=== PATIENT | female | born 1975 | race Caucasian/White ===

== ENCOUNTER → 2023-12-12 | Outpatient (CLI) | payer BC ==
[2023-12-12 10:29] VITALS: BP 97/69; PULSE 70; RESP 17; TEMP 98.3
--- NOTE | 2023-12-12 17:21 | P.HPOB ---
History of Present Illness H&P Date: 12/12/23 Chief Complaint: The patient is here for her routine gynecologic exam. This is a 48-year-old -0-1-2 with an LMP of 12/04/2023. The patient states her menstrual periods are still regular every month. During the past 8 months she has been experiencing some pelvic pressure greatest on the left side. She rates the discomfort at 0.5/10. Occasionally when moving certain ways she can feel a slight pinching sensation. Her PCP ordered a pelvic ultrasound because of the symptoms on 06/01/2023 which showed a 2.9 cm left ovarian cyst, a 1.7 cm right ovarian cyst consistent with a corpus luteum cyst, and there was some lower uterine segment vascularity measuring 0.8 cm which was felt to be consistent with her previous C-sections. There was also possible fibroids with the largest measuring 1.7 cm. Patient is otherwise without gynecologic complaints. Review of Systems She has gained about 20 pounds over the past 4 years. Denies respiratory, cardiac, or GI problems. Past Medical History Past Medical History: No Reported History Additional Past Medical History / Comment(s): History of left knee problems. 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 History of Any Multi-Drug Resistant Organisms: None Reported Past Surgical History: Section Additional Past Surgical History / Comment(s): section 2. 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 She continues to work out of her home and lives in [place]. - Past Family History Son(s) Family Medical History: Diabetes Mellitus Additional Family Medical History / Comment(s): Suspected type 1 diabetes. Paternal gramdmaother Family Medical History: CVA/TIA Medications and Allergies Home Medications Medication Instructions Recorded Confirmed Type Cholecalciferol [Vitamin D3 (25 1 cap PO HS 03/24/20 12/12/23 History Mcg = 1000 Iu)] L.acidoph,Paracasei, B.lactis 1 each PO HS 03/24/20 12/12/23 History [Probiotic] Multivitamin [Multivitamins Adult 1 each PO HS 03/24/20 12/12/23 History Gummies] Ubidecarenone [Co Q-10] 100 mg PO HS 03/24/20 12/12/23 History Iron 18 mg PO DAILY 12/12/23 12/12/23 History Allergies Allergy/AdvReac Type Severity Reaction Status Date / Time No Known Allergies Allergy Unverified 12/12/23 10:02 Exam Vital Signs Temp Pulse Resp BP Pulse Ox 12/12/23 10:04 98.3 F 70 17 97/69 98 Intake and Output 12/12/23 12/12/23 12/12/23 06:59 14:59 22:59 Other: Weight 96.615 kg Height 5 feet 7 inches, weight 213 pounds, BMI 33.4. This is a well-developed well-nourished white female who is alert and oriented times 3 in no acute distress. HEENT: Within normal limits. NECK: Supple without mass or thyromegaly. CHEST AND LUNGS: Clear to auscultation. HEART: Regular rate and rhythm. BREASTS: Are without mass or discharge. AXILLARY EXAM: Negative for adenopathy. BACK: Negative for CVA tenderness. ABDOMEN: Soft, nontender, without palpable masses. PELVIC EXAM: Normal external genitalia. Cervix and vagina appear normal. There is no cervical motion tenderness. There is no unusual discharge. There is no evidence of prolapse. The uterus is midposition, nongravid size and nontender. There are no palpable adnexal masses or tenderness. RECTAL EXAM: Rectovaginal exam is negative for mass or tenderness negative for mass or tenderness and is negative for occult blood. EXTREMITIES: Nontender. IMPRESSION: 1. 48-year-old premenopausal female with mild left pelvic pressure and mild left pelvic pains with no significant physical findings on exam today. Differential diagnosis will include symptoms from a left ovarian cyst, uterine fibroids as well as possible non- gynecologic pressure. 2. History of 06/01/2023 pelvic ultrasound which showed a 2.9 cm left ovarian cyst and small uterine fibroids with the largest measuring 1.7 cm. PLAN: 1. Pap smear cotest was performed. 2. Self breast awareness was discussed with the patient. We have also discussed symptoms associated with inflammatory breast cancer. 3. Screening mammogram due and the order slip was given to the patient for this. 4. Pelvic ultrasound was recommended as a follow-up from the pelvic ultrasound done 6 months ago. The order slip was given to the patient for this. If benign findings consider conservative management if her symptoms are still minimal. Consider referral for surgical intervention if worsening symptoms or if significant abnormal findings with the ultrasound. 5. Colorectal cancer screening was discussed with the patient and she will further discuss this with her PCP. 6. Weight control was discussed with the patient. I have stressed the importance of good nutrition, regular meals, adequate fiber, and regular exercise. 7. She was advised to return in one year for her annual well woman exam and as needed.
== END ==
LOC: WWCWWP 09:12
PROVIDERS: ATTEND Obstetrics & Gynecology
DX: R10.2 Pelvic and perineal pain (principal); D25.9 Leiomyoma of uterus, unspecified; N83.202 Unspecified ovarian cyst, left side; Z78.0 Asymptomatic menopausal state

== ENCOUNTER → 2024-01-01 | Outpatient (CLI) | payer BC ==
--- NOTE | 2024-01-01 12:46 | US ---
EXAMINATION TYPE: US pelvis complete transvag DATE OF EXAM: 01/01/2024 COMPARISON: 05/24/2023 CLINICAL INDICATION: Female, 48 years old with history of R10.2 PELV PAIN N83.0 OV CYST D25.9; histor y of left ovarian cysts and fibroids TECHNIQUE: Transvaginal (TV) and Transabdominal (TA) . Transabdominal sonographic images of the pel vis were acquired. Transvaginal sonographic images were medically necessary to better assess the fol lowing anatomy: Endometrium Date of LMP: 12/29/2023, EXAM MEASUREMENTS: Uterus: 12.0 x 6.2 x 4.8 cm Endometrial Stripe: 0.7 cm Right Ovary: 3.1 x 1.5 x 1.4 cm Left Ovary: 4.1 x 3.1 x 2.7 cm 1. Uterus: Anteverted Heterogenous. Enlarged in size. Multiple hypoechoic lesions seen throughou t uterus. Largest on right = 1.6 x 1.5 x 1.5 cm. Largest on left = 1.7 x 1.6 x 1.2 cm. 2. Endometrium: Echogenic lesion seen at level of SHERIN/ area with possible vascular stalk = 0.7 x 0.7 x 0.6 cm. 3. Right Ovary: wnl 4. Left Ovary: Simple appearing cystic lesion - 3.1 x 2.7 x 2.4 cm 5. Bilateral Adnexa: wnl 6. Posterior cul-de-sac: No free fluid Cervix- nabothian cysts IMPRESSION: 1. Endometrial polyp suggested with vascular stalk. Direct visualization recommended. 2. Enlarged fibroid uterus. 3. Endometrium within normal limits for thickness were visualized. 4. Left ovarian cyst measuring up to 3.1 cm.
--- NOTE | 2024-01-03 09:31 | MM ---
Reason for Exam: Screening (asymptomatic). Last mammogram was performed 1 year(s) and 2 month(s) ago. Patient History: Menarche at age 11. First Full-Term at age 33. Late child-bearing (after 30). Risk Values: Adia 5 year model risk: 1.4%. NCI Lifetime model risk: 13.6%. Prior Study Comparison: 10/10/2022 Bilateral MG 3D screening mammo w/cad, [facility]. Tissue Density: The breasts are heterogeneously dense, which may obscure small masses. Findings: Analyzed By CAD. There is no suspicious group of microcalcifications or new suspicious mass in either breast. There is an asymmetric density in the posterior upper outer margin right breast and upper outer left breast. Recommend spot compression view. Overall Assessment: Incomplete: need additional imaging evaluation, BI-RAD 0 Management: Diagnostic Mammogram of both breasts. . Patient should continue monthly self-breast exams. A clinical breast exam by your physician is recommended on an annual basis. This exam should not preclude additional follow-up of suspicious palpable abnormalities. Note on Aida scores and lifetime risk: 1. A Aida score greater than 3% is considered moderate risk. If this is the case, consider specialist referral to assess eligibility for a risk reducing agent. 2. If overall lifetime risk for the development of breast cancer is 20% or higher, the patient may qualify for future screening with alternating mammogram and breast MRI. Electronically signed and approved by: Neo Rodriguez M.D. Radiologis
--- NOTE | 2024-01-03 14:24 | P.PN ---
Progress Note - Text Progress Note Date: 01/03/24 OUTPATIENT FOLLOW-UP NOTE TEST(S)/RESULTS: Test results from 01/01/2024 include mammogram which does require bilateral breast workup for asymmetric dense areas. Pelvic ultrasound done on that date shows a left ovarian simple cyst measuring 3.1 cm. There are small uterine fibroids with the largest measuring 1.7 cm. The right ovarian cyst which was previously seen by ultrasound on 06/01/2023 is no longer seen. There is a small area within the endometrium which appears like it may be a endometrial polyp measuring about 7 mm. METHOD OF NOTIFICATION: The patient was notified about these findings by phone on 01/03/2024. PATIENT COMMENTS: The patient states she was contacted by the radiology d geoff and has scheduled a bilateral breast workup on 01/05/2024. States the minimal pains which she was experiencing on the left side have resolved since she was seen in the office by me. She also denies any intermenstrual bleeding or problems with her menstrual periods. DIAGNOSIS: Screening mammogram that does require bilateral breast workup. Pelvic ultrasound showing small uterine fibroids, a simple benign appearing left ovarian cyst measuring approximately 3.1 cm which is similar to the 06/01/2023 ultrasound. Possible small endometrial polyp which does not seem to be causing any menstrual problems. DISCUSSION: I have recommended that we follow the ultrasound findings conservatively at this time unless she is experiencing increasing pelvic discomfort or any menstrual or intermenstrual bleeding problems. Plan on repeating the pelvic ultrasound in 1 year. PLAN: Bilateral breast workup on 01/05/2024. Repeat pelvic ultrasound in 1 year or as needed. She was advised to return in one year for her annual well woman exam.
== END | disposition home or self-care (01) ==
LOC: RADUSWWP 11:07
PROVIDERS: ATTEND Obstetrics & Gynecology
DX: Z12.31 Encounter for screening mammogram for malignant neoplasm of breast (principal); N83.202 Unspecified ovarian cyst, left side; D25.9 Leiomyoma of uterus, unspecified; N84.0 Polyp of corpus uteri
CPT/HCPCS: 76830; 76856; 77063; 77067

== ENCOUNTER → 2024-01-05 | Outpatient (CLI) | payer BC ==
--- NOTE | 2024-01-05 07:59 | MM ---
Reason for Exam: Additional evaluation requested from abnormal screening. Last screening mammogram was performed less than 1 month ago. Patient History: Menarche at age 11. First Full-Term at age 33. Late child-bearing (after 30). Risk Values: Aida 5 year model risk: 1.4%. NCI Lifetime model risk: 13.6%. Prior Study Comparison: 10/10/2022 Bilateral MG 3D screening mammo w/cad, [facility]. 01/01/2024 Bilateral MG 3D screening mammo w/cad, [facility]. Tissue Density: There are scattered areas of fibroglandular density. Findings: Analyzed By CAD. Persistent right upper outer quadrant focal asymmetry 9.3 cm from nipple is a 12 mm on CC view upper aspect on MLO view. Persistent 7 mm lesion in the left breast on MLO view of the superior aspect 7 cm the nipple. Overall Assessment: Incomplete: need additional imaging evaluation, BI-RAD 0 Management: Diagnostic Breast Ultrasound of both breasts. Results were given to the patient verbally at the time of exam. Patient should continue monthly self-breast exams. A clinical breast exam by your physician is recommended on an annual basis. This exam should not preclude additional follow-up of suspicious palpable abnormalities. Note on Aida scores and lifetime risk: 1. A Aida score greater than 3% is considered moderate risk. If this is the case, consider specialist referral to assess eligibility for a risk reducing agent. 2. If overall lifetime risk for the development of breast cancer is 20% or higher, the patient may qualify for future screening with alternating mammogram and breast MRI. Electronically signed and approved by: Jim Zapata DO
--- NOTE | 2024-01-05 08:09 | USB ---
Reason for Exam: Additional evaluation requested from abnormal screening. Patient History: Menarche at age 11. First Full-Term at age 33. Late child-bearing (after 30). Risk Values: Aida 5 year model risk: 1.4%. NCI Lifetime model risk: 13.6%. Technique: Method: Targeted. Prior Study Comparison: 10/10/2022 Bilateral MG 3D screening mammo w/cad, [facility]. 01/01/2024 Bilateral MG 3D screening mammo w/cad, [facility]. Findings: The upper outer quadrant of both breasts, the axilla of both breasts and the retroareolar of both breasts were scanned. Technique utilized:US breast workup limited NAMOI Image; Ultrasound imaging of: All 4 quadrants, the retroareolar region and axilla. * Anechoic cyst 7 mm at 12:00 7 cm from the nipple. * No finding in the right breast correlating with mammographic finding. The area has appeared stable from 10/10/2022 on mammography. Short-term follow-up mammography only in 6 months of the right breast for the right upper outer posterior depth focal asymmetry to ensure stability. Overall Assessment: Probably benign, BI-RAD 3 Management: Diagnostic Mammogram of the right breast in 6 months. A clinical breast exam by your physician is recommended on an annual basis and results should be correlated with mammographic findings. This exam should not preclude additional follow-up of suspicious palpable abnormalities. Results were given to the patient verbally at the time of exam. Electronically signed and approved by: Jim Zapata DO
--- NOTE | 2024-01-09 08:56 | P.PN ---
Progress Note - Text Progress Note Date: 01/09/24 OUTPATIENT FOLLOW-UP NOTE TEST(S)/RESULTS: Screening mammogram done on 01/01/2024 required a bilateral breast workup which was done on 01/05/2024. The workup was probably benign and a 6-month diagnostic right mammogram was recommended. METHOD OF NOTIFICATION: The bilateral breast workup results were given to the patient by the radiology department at the time of the exam. PATIENT COMMENTS: DIAGNOSIS: Probably benign bilateral breast workup. DISCUSSION: Right diagnostic mammogram in 6 months was recommended. The order slip will be mailed to the patient. PLAN: As above.
== END | disposition home or self-care (01) ==
LOC: RADMAMWWP 06:52
PROVIDERS: ATTEND Obstetrics & Gynecology
DX: R92.8 Other abnormal and inconclusive findings on diagnostic imaging of breast (principal); R92.323 Mammographic fibroglandular density, bilateral breasts
CPT/HCPCS: 77062; 77066

== ENCOUNTER → 2024-08-02 | Outpatient (CLI) | payer BC ==
--- NOTE | 2024-08-02 08:01 | MM ---
Reason for Exam: Follow-up at short interval from prior study. Last screening mammogram was performed 6 month(s) ago. Patient History: Menarche at age 11. First Full-Term at age 33. Late child-bearing (after 30). Premenopausal. Risk Values: Aida 5 year model risk: 1.4%. NCI Lifetime model risk: 13.4%. Prior Study Comparison: 10/10/2022 Bilateral MG 3D screening mammo w/cad, [facility]. 01/01/2024 Bilateral MG 3D screening mammo w/cad, [facility]. 01/05/2024 Bilateral MG 3D work up w/cad [facility], [facility]. Tissue Density: Right: The breasts are heterogeneously dense, which may obscure small masses. Findings: Analyzed By CAD. 1.1 cm central outer asymmetric density right CC view posterior to persist and may be minimally larger by 1 to 2 mm. Not clearly identified on the MLO view. Further ultrasound evaluation recommended. Overall Assessment: Incomplete: need additional imaging evaluation, BI-RAD 0 Management: Diagnostic Breast Ultrasound of the right breast. [facility], , 08/02/2024 7:57 AM. Electronically signed and approved by: Thad Wilson M.D. Radiologist
--- NOTE | 2024-08-02 08:27 | USB ---
Reason for Exam: Additional evaluation requested from abnormal screening. Patient History: Menarche at age 11. First Full-Term at age 33. Late child-bearing (after 30). Premenopausal. Risk Values: Aida 5 year model risk: 1.4%. NCI Lifetime model risk: 13.4%. Technique: Method: Targeted. Prior Study Comparison: 10/10/2022 Bilateral MG 3D screening mammo w/cad, [facility]. 01/01/2024 Bilateral MG 3D screening mammo w/cad, [facility]. 01/05/2024 Bilateral MG 3D work up w/cad [facility], [facility]. Findings: The upper outer quadrant of the right breast, the axilla of the right breast and the retroareolar of the right breast were scanned. Targeted ultrasound quadrant right breast from 9:00 to 12:00 including scanning of the subareolar region and axilla. No solid or cystic lesion or axillary lymphadenopathy. No correlate for the mammographic density. Overall Assessment: Suspicious, BI-RAD 4 Management: Stereotactic Core Biopsy of the right breast. For the prominent persisting density without sonographic correlate. Finding may reflect a prominent island of tissue. Other etiology can be excluded. Results were given to the patient verbally at the time of exam. [facility], , 08/02/2024 8:24 AM. Electronically signed and approved by: Thad Wilson M.D. Radiologist
== END | disposition home or self-care (01) ==
LOC: RADMAMWWP 07:33
PROVIDERS: ATTEND Obstetrics & Gynecology
DX: R92.8 Other abnormal and inconclusive findings on diagnostic imaging of breast (principal); R92.331 Mammographic heterogeneous density, right breast
CPT/HCPCS: 77061; 77065

== ENCOUNTER 2024-08-04 15:37 | Emergency (ER) | payer BC ==
--- NOTE | 2024-08-04 15:59 | ED ---
General Adult HPI - General Source: patient, RN notes reviewed Mode of arrival: ambulatory Limitations: no limitations <Haritha Larios - Last Filed: 08/04/24 15:58> <Trisha Pierce - Last Filed: 08/04/24 22:41> - General Stated complaint: lower back pain Time Seen by Provider: 08/04/24 15:58 - History of Present Illness Initial comments: Quick note: 49-year-old female presents to the emergency department for evaluation of left flank pain. Patient states this been going on as a dull ache for a couple of weeks but has gotten more severe over the past 1 to 2 days. She also notes blood in her urine today. No history of kidney stones. Denies fever, chills. Endorses nausea without vomiting. (Haritha Larios) This is a 49-year-old female presenting to emergency department chief complaint of left flank pain that has been ongoing over the past couple weeks however states that over the past 1 and 2 days the pain has gotten more severe. States the pain feels like a twinge in her back and movements were a few seconds. Patient denies radiation of pain, recent trauma or injury, loss of bladder or bowel continence, saddle anesthesias. She states that she noticed blood in her urine today Denies history of kidney stones. She denies fevers, chills, diarrhea, dysuria, increase in urinary frequency or urgency. (Trisha Pierce) - Related Data Home Medications Medication Instructions Recorded Confirmed Cholecalciferol [Vitamin D3 (25 1 cap PO HS 03/24/20 12/12/23 Mcg = 1000 Iu)] L.acidoph,Paracasei, B.lactis 1 each PO HS 03/24/20 12/12/23 [Probiotic] Multivitamin [Multivitamins Adult 1 each PO HS 03/24/20 12/12/23 Gummies] Ubidecarenone [Co Q-10] 100 mg PO HS 03/24/20 12/12/23 Iron 18 mg PO DAILY 12/12/23 12/12/23 Allergies Allergy/AdvReac Type Severity Reaction Status Date / Time No Known Allergies Allergy Verified 08/04/24 16:18 Review of Systems ROS Other: All systems not noted in ROS Statement are negative. <Haritha Larios - Last Filed: 08/04/24 15:58> ROS Other: All systems not noted in ROS Statement are negative. <Trisha Pierce - Last Filed: 08/04/24 22:41> ROS Statement: Those systems with pertinent positive or pertinent negative responses have been documented in the HPI. Past Medical History Past Medical History: No Reported History Additional Past Medical History / Comment(s): History of left knee problems. 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 History of Any Multi-Drug Resistant Organisms: None Reported Past Surgical History: Section Additional Past Surgical History / Comment(s): section 2. Past Psychological History: No Psychological Hx Reported Smoking Status: Never smoker Past Alcohol Use History: Occasional (About 6 drinks per week.) Past Drug Use History: None Reported - Past Family History Son(s) Family Medical History: Diabetes Mellitus Additional Family Medical History / Comment(s): Suspected type 1 diabetes. Paternal gramdmaother Family Medical History: CVA/TIA <Haritha Larios - Last Filed: 08/04/24 15:58> General Exam <Haritha Larios - Last Filed: 08/04/24 15:58> Head exam: Present: atraumatic, normocephalic, normal inspection ENT exam: Present: normal exam, mucous membranes moist Respiratory exam: Present: normal lung sounds bilaterally. Absent: respiratory distress, wheezes, rales, rhonchi, stridor Cardiovascular Exam: Present: regular rate, normal rhythm, normal heart sounds. Absent: systolic murmur, diastolic murmur, rubs, gallop, clicks GI/Abdominal exam: Present: soft, normal bowel sounds. Absent: distended, tenderness, guarding, rebound, rigid Extremities exam: Present: normal inspection, full ROM, normal capillary refill. Absent: tenderness, pedal edema, joint swelling, calf tenderness Back exam: Present: normal inspection Neurological exam: Present: alert, oriented X3, CN II-XII intact Skin exam: Present: warm, dry, intact, normal color. Absent: rash <Trisha Pierce - Last Filed: 08/04/24 22:41> - General Exam Comments Initial Comments: Visual Physical Exam Vital signs reviewed General: Well-appearing, nontoxic, no acute distress. Head: Normocephalic, atraumatic Eyes: PERRLA, EOMI ENT: Airway patent Chest: Nonlabored breathing Skin: No visual rash, normal skin tone Neuro: Alert and oriented 3 Musculoskeletal: No gross abnormalities (Haritha Larios) Course Vital Signs 08/04/24 08/04/24 16:18 20:11 Temperature 98.3 F Pulse Rate 96 72 Respiratory 18 16 Rate Blood Pressure 122/79 123/82 O2 Sat by Pulse 99 97 Oximetry Medical Decision Making <Haritha Larios - Last Filed: 08/04/24 15:58> - Lab Data Result diagrams: 08/04/24 16:34 08/04/24 16:34 <Trisha Pierce - Last Filed: 08/04/24 22:41> - Medical Decision Making I preformed a quick note portion of this chart. Electronically signed Haritha Larios PA-C (Haritha Larios) Was pt. sent in by a medical professional or institution ([facility], [employer]PER[employer], urgent care, hospital, or [place] health care facility...) When possible be specific @ -No Did you speak to anyone other than the patient for history (EMS, parent, family, police, friend...)? What history was obtained from this source @ -No Did you review nursing and triage notes (agree or disagree)? Why? @ -I reviewed and agree with nursing and triage notes Were old charts reviewed (outside hosp., previous admission, EMS record, old EKG, old radiological studies, urgent care reports/EKG's, [place] health care facility records)? Report findings @ -No old charts were reviewed Differential Diagnosis (chest pain, altered mental status, abdominal pain women, abdominal pain men, vaginal bleeding, weakness, fever, dyspnea, syncope, headache, dizziness, GI bleed, back pain, seizure, CVA, palpatations, mental health, musculoskeletal)? @ -Differential Abdominal Pain Women: Appendicitis, Cholecystitis, diverticulosis, ischemic bowel, pancreatitis, hepatitis, UTI, gastroenteritis, AAA, incarcerated hernia, bowel obstruction, constipation, inflammatory bowel, hepatitis, peptic ulcer disease, splenic infarction, perforated viscus, vulvitis, ovarian torsion, PID, kidney stone, placenta abruption, this is not meant to be an all-inclusive list EKG interpreted by me (3pts min.). @ none X-rays interpreted by me (1pt min.). @ -None done CT interpreted by me (1pt min.). 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 U/S interpreted by me (1pt. min.). @ -None done What testing was considered but not performed or refused? (CT, X-rays, U/S, labs)? Why? @ -None What meds were considered but not given or refused? Why? @ -None Did you discuss the management of the patient with other professionals (professionals i.e. , PA, [employer] OPERATOR, lab, RT, psych nurse, social work job titles, database dba, teacher, national service officer, case advocate)? Give summary @ -No Was smoking cessation discussed for >3mins.? @ -No Was critical care preformed (if so, how long)? @ -No Were there social determinants of health that impacted care today? How? (Homelessness, low income, unemployed, alcoholism, drug addiction, transportation, low edu. Level, literacy, decrease access to med. care, custodial, rehab)? @ -No Was there de-escalation of care discussed even if they declined (Discuss DNR or withdrawal of care, Hospice)? DNR status @ -No What co-morbidities impacted this encounter? (DM, HTN, Smoking, COPD, CAD, Canc er, CVA, ARF, Chemo, Hep., AIDS, mental health diagnosis, sleep apnea, morbid obesity)? @ -None Was patient admitted / discharged? Hospital course, mention meds given and route, prescriptions, significant lab abnormalities, going to OR and other pertinent info. @ -Discharge. 49-year-old female with left flank pain. Patient was originally evaluated emergency department waiting room as a quick note where laboratory studies were in addition to CT imaging. My evaluation the patient is resting company no signs acute distress. Vitals are stable. On physical examination patient does not have left CVA tenderness. She states that the pain is intermittent and since she has been in the emergency department she has not experienced the pain. Laboratory studies are unremarkable, urinalysis no signs of infection or blood, hCG negative. 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 Recommend that patient continue to follow-up with her primary care provider outpatient. Discussed with Dr. Roskopp Undiagnosed new problem with uncertain prognosis? @ -No Drug Therapy requiring intensive monitoring for toxicity (Heparin, Nitro, Insulin, Cardizem)? @ -No Were any procedures done? @ -No Diagnosis/symptom? @ -Flank pain Acute, or Chronic, or Acute on Chronic? @ -Acute Uncomplicated (without systemic symptoms) or Complicated (systemic symptoms)? @ -Uncomplicated Side effects of treatment? @ -No Exacerbation, Progression, or Severe Exacerbation? @ -No Poses a threat to life or bodily function? How? (Chest pain, [place], [place], pneumonia, PE, COPD, DKA, ARF, appy, cholecystitis, CVA, Diverticulitis, Homicidal, Suicidal, threat to staff... and all critical care pts) @ -No (Trisha Pierce) - Lab Data Lab Results 08/04/24 08/04/24 08/04/24 Range/Units 16:34 16:34 16:34 WBC 9.0 (3.8-10.6) k/uL RBC 4.61 (3.80-5.40) m/uL Hgb 13.1 (11.4-16.0) gm/dL Hct 39.9 (34.0-46.0) % MCV 86.6 (80.0-100.0) fL MCH 28.4 (25.0-35.0) pg MCHC 32.8 (31.0-37.0) g/dL RDW 12.6 (11.5-15.5) % Plt Count 279 (150-450) k/uL MPV 8.3 Neutrophils % 76 % Lymphocytes % 16 % Monocytes % 4 % Eosinophils % 1 % Basophils % 1 % Neutrophils # 6.8 (1.3-7.7) k/uL Lymphocytes # 1.5 (1.0-4.8) k/uL Monocytes # 0.4 (0-1.0) k/uL Eosinophils # 0.1 (0-0.7) k/uL Basophils # 0.1 (0-0.2) k/uL Sodium (137-145) mmol/L Potassium (3.5-5.1) mmol/L Chloride (98-107) mmol/L Carbon Dioxide (22-30) mmol/L Anion Gap mmol/L BUN (7-17) mg/dL Creatinine (0.52-1.04) mg/dL Est GFR (CKD-EPI)AfAm (>60 ml/min/1.73 sqM) Est GFR (CKD-EPI)NonAf (>60 ml/min/1.73 sqM) Glucose (74-99) mg/dL Plasma Lactic Acid Gunner (0.7-2.0) mmol/L Calcium (8.4-10.2) mg/dL Total Bilirubin (0.2-1.3) mg/dL AST (14-36) U/L ALT (4-34) U/L Alkaline Phosphatase (38-126) U/L Total Protein (6.3-8.2) g/dL Albumin (3.5-5.0) g/dL Amylase (30-110) U/L Lipase (23-300) U/L TSH (0.465-4.680) mIU/L Urine Color Colorless Urine Appearance Clear (Clear) Urine pH 6.5 (5.0-8.0) Ur Specific Advance 1.003 (1.001-1.035) Urine Protein Negative (Negative) Urine Glucose (UA) Negative (Negative) Urine Ketones Trace H (Negative) Urine Blood Negative (Negative) Urine Nitrite Negative (Negative) Urine Bilirubin Negative (Negative) Urine Urobilinogen <2.0 (<2.0) mg/dL Ur Leukocyte Esterase Negative (Negative) Urine HCG, Qual Not Detected (Not Detectd) 08/04/24 08/04/24 Range/Units 16:34 16:34 WBC (3.8-10.6) k/uL RBC (3.80-5.40) m/uL Hgb (11.4-16.0) gm/dL Hct (34.0-46.0) % MCV (80.0-100.0) fL MCH (25.0-35.0) pg MCHC (31.0-37.0) g/dL RDW (11.5-15.5) % Plt Count (150-450) k/uL MPV Neutrophils % % Lymphocytes % % Monocytes % % Eosinophils % % Basophils % % Neutrophils # (1.3-7.7) k/uL Lymphocytes # (1.0-4.8) k/uL Monocytes # (0-1.0) k/uL Eosinophils # (0-0.7) k/uL Basophils # (0-0.2) k/uL Sodium 140 (137-145) mmol/L Potassium 3.9 (3.5-5.1) mmol/L Chloride 107 (98-107) mmol/L Carbon Dioxide 26 (22-30) mmol/L Anion Gap 7 mmol/L BUN 6 L (7-17) mg/dL Creatinine 0.72 (0.52-1.04) mg/dL Est GFR (CKD-EPI)AfAm >90 (>60 ml/min/1.73 sqM) Est GFR (CKD-EPI)NonAf >90 (>60 ml/min/1.73 sqM) Glucose 109 H (74-99) mg/dL Plasma Lactic Acid Gunner 1.0 (0.7-2.0) mmol/L Calcium 9.5 (8.4-10.2) mg/dL Total Bilirubin 0.6 (0.2-1.3) mg/dL AST 19 (14-36) U/L ALT 16 (4-34) U/L Alkaline Phosphatase 65 (38-126) U/L Total Protein 8.4 H (6.3-8.2) g/dL Albumin 4.9 (3.5-5.0) g/dL Amylase 45 (30-110) U/L Lipase 80 (23-300) U/L TSH 2.510 (0.465-4.680) mIU/L Urine Color Urine Appearance (Clear) Urine pH (5.0-8.0) Ur Specific Advance (1.001-1.035) Urine Protein (Negative) Urine Glucose (UA) (Negative) Urine Ketones (Negative) Urine Blood (Negative) Urine Nitrite (Negative) Urine Bilirubin (Negative) Urine Urobilinogen (<2.0) mg/dL Ur Leukocyte Esterase (Negative) Urine HCG, Qual (Not Detectd) Disposition <Haritha Larios - Last Filed: 08/04/24 15:58> Is patient prescribed a controlled substance at d/c from ED?: No Time of Disposition: 20:07 <Trisha Pierce - Last Filed: 08/04/24 22:41> Clinical Impression: Flank pain Disposition: HOME SELF-CARE Condition: Good Instructions (If sedation given, give patient instructions): Flank Pain (ED) Additional Instructions: Please return to the Emergency Department if symptoms worsen or any other concerns. Referrals: Rei Loredo DO [Primary Care Provider] - 1-2 days
[2024-08-04 16:22] VITALS: TEMP 98.3
[2024-08-04 17:04] LABS: Basophils # (A) 0.1 k/uL (0-0.2); Basophils % (A) 1 %; Eosinophils # (A) 0.1 k/uL (0-0.7); Eosinophils % (A) 1 %; HCT 39.9 % (34.0-46.0); HGB 13.1 gm/dL (11.4-16.0); Lymphocytes # (A) 1.5 k/uL (1.0-4.8); Lymphocytes % (A) 16 %; MCH 28.4 pg (25.0-35.0); MCHC 32.8 g/dL (31.0-37.0); MCV 86.6 fL (80.0-100.0); Mean Platelet Volume 8.3; Monocytes # (A) 0.4 k/uL (0-1.0); Monocytes % (A) 4 %; Neutrophils # (A) 6.8 k/uL (1.3-7.7); Neutrophils % (A) 76 %; Platelet Count 279 k/uL (150-450); RBC 4.61 m/uL (3.80-5.40); RDW 12.6 % (11.5-15.5)
[2024-08-04 17:16] LABS: Appearance,Urine Clear (Clear); Bilirubin,Urine Negative (Negative); Blood,Urine Negative (Negative); Color,Urine Colorless; Glucose,Urine (UA) Negative (Negative); Ketones,Urine Trace (Negative); Leukocyte Esterase,Urine Negative (Negative); Nitrite,Urine Negative (Negative); PH, Urine 6.5 (5.0-8.0); Protein,Urine Negative (Negative); Specific Gravity,Urine 1.003 (1.001-1.035); Urobilinogen,Urine <2.0 mg/dL (<2.0)
[2024-08-04 17:23] LABS: ALT 16 U/L (4-34); AST 19 U/L (14-36); African American GFR (CKD) >90 (>60 ml/min/1.73 sqM); Albumin 4.9 g/dL (3.5-5.0); Alkaline Phosphatase 65 U/L (38-126); Amylase 45 U/L (30-110); Anion Gap 7 mmol/L; Blood Urea Nitrogen 6 mg/dL (7-17); Calcium 9.5 mg/dL (8.4-10.2); Carbon Dioxide 26 mmol/L (22-30); Chloride 107 mmol/L (98-107); Glucose 109 mg/dL (74-99); Lipase 80 U/L (23-300); Non-African American GFR(CKD) >90 (>60 ml/min/1.73 sqM); Potassium 3.9 mmol/L (3.5-5.1); Sodium 140 mmol/L (137-145); Total Bilirubin 0.6 mg/dL (0.2-1.3); Total Protein 8.4 g/dL (6.3-8.2)
--- NOTE | 2024-08-04 19:42 | CT ---
EXAMINATION TYPE: CT abdomen pelvis wo con DATE OF EXAM: 08/04/2024 7:30 PM COMPARISON: None available. CLINICAL INDICATION: Female, 49 years old with history of left flank pain; left flank pain TECHNIQUE: Axial CT abdomen pelvis wo con;Sagittal and coronal reformats were created on a separate workstation. Oral contrast used: without Oral Contrast (none if empty) CT DLP: 784.4 mGycm, Automated exposure control for dose reduction was used. FINDINGS: LOWER CHEST: Unremarkable ABDOMEN LIVER: Unremarkable GALLBLADDER AND BILE DUCTS: Unremarkable. PANCREAS: Unremarkable. SPLEEN: Unremarkable. ADRENAL GLANDS: Unremarkable. KIDNEYS AND URETERS: No evidence of hydronephrosis or renal calculus. The ureters are unremarkable. S mall fat density 10 mm lesion in the left kidney compatible with a benign angiomyolipoma. PELVIS BLADDER: No evidence for wall thickening or mass given limitations of exam. REPRODUCTIVE: Unremarkable. ABDOMEN & PELVIS STOMACH AND BOWEL: Stomach and duodenum are unremarkable No evidence of bowel obstruction. PERITONEUM/RETROPERITONEUM: No evidence of pneumoperitoneum or free fluid. Mesenteric stranding and s mall mesenteric lymph nodes with pseudocapsule and mild adjacent mass effect on small bowel structure s (image 64 axial series) suggestive of sclerosing enteritis. VASCULATURE: No evidence of aortic aneurysm. MUSCULOSKELETAL: No acute osseous abnormalities LYMPH NODES: No pathologic retroperitoneal lymphadenopathy. SOFT TISSUE/ABDOMINAL WALL: Tiny fat-containing periumbilical hernia. 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 [facility], , 08/04/2024 7:39 PM
[2024-08-04 20:15] VITALS: BP 123/82; PULSE 72; RESP 16
== END 2024-08-04 20:21 | disposition home or self-care (01) ==
LOC: EC 15:37
DX: R10.9 Unspecified abdominal pain (principal)
CPT/HCPCS: 36415; 74176; 80053; 81003; 81025; 82150; 83605; 83690; 84443; 85025; 93005; 99284

== ENCOUNTER → 2024-08-22 | Outpatient (CLI) | payer BC ==
--- NOTE | 2024-08-22 09:57 | US ---
EXAMINATION TYPE: US thyroid st tissue head/neck DATE OF EXAM: 08/22/2024 COMPARISON: US 2012 CLINICAL INDICATION: Female, 49 years old with history of R10.11 RUQ PAIN E04.9 GOITER; Goiter TECHNIQUE: Grayscale and color Doppler imaging of the thyroid gland. FINDINGS: GLAND SIZE: Right Lobe: 5.9 x 2.1 x 2.9 cm Overall Parenchyma: heterogeneous Left Lobe: 4.9 x 1.6 x 1.6 cm Overall Parenchyma: heterogeneous Isthmus Thickness: 0.5 cm NODULES RIGHT: # of nodules measured on right: 0 LEFT: # of nodules measured on left: 0 ISTHMUS: # of nodules measured in the isthmus: 0 Bilateral neck scanned, no evidence of lymphadenopathy. Bilateral thyroid heterogeneous throughout, s imilar findings to prior US. IMPRESSION: Thyromegaly with heterogeneous pattern to the thyroid suggestive of thyroiditis. No sizable solid or cystic thyroid nodule. 2017 ACR TI-RADS LEVEL: TR-RADS 1 - BENIGN: No FNA *Highest TI-RADS level nodule reported [email or web address] [facility], , 08/22/2024 9:55 AM
--- NOTE | 2024-08-22 10:09 | US ---
EXAMINATION TYPE: US abdomen complete DATE OF EXAM: 08/22/2024 COMPARISON: CT CLINICAL INDICATION: Female, 49 years old with history of R10.11 RUQ PAIN E04.9 GOITER; RUQ pain TECHNIQUE: Grayscale and color Doppler imaging of the abdomen was performed. FINDINGS: EXAM MEASUREMENTS: Liver Length: 16.3 cm Gallbladder Wall: 0.2 cm CBD: 0.4 cm, color Doppler imaging was utilized to isolate the common bile duct for measurement. 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 There is a 1.4 cm echogenic lesion involving the lower pole left kidney too small t o characterize but likely related to a angiomyolipoma or lipoma. [facility], , 08/22/2024 10:06 AM
== END | disposition home or self-care (01) ==
LOC: RADUSWWP 08:21
PROVIDERS: ATTEND Family Medicine
DX: E01.0 Iodine-deficiency related diffuse (endemic) goiter (principal); R10.11 Right upper quadrant pain
CPT/HCPCS: 76536; 76700

== ENCOUNTER → 2024-09-05 | Day surgery (SDC) | payer BC ==
[~2024-09-05] MED LIST: ALPRAZolam 0.25 MG TAB PO PRN; ALPRAZolam 0.5 MG TAB PO PRN
[2024-09-05 07:38] VITALS: RESP 16
--- NOTE | 2024-09-05 08:17 | P.GSCN ---
History of Present Illness Consult date: 09/05/24 Reason for Consult: abnormal right breast mammogram Requesting physician: Mark Brown History of present illness: Daniela is a 49-year-old female who underwent a bilateral screening mammogram on 01-01-24. Diagnostic mammogram of both breast was recommended. This was performed on 01-05-2024. A persistent right upper outer quadrant focal asymmetry 9.3 cm from the nipple was identified. A persistent 7 mm lesion in the left breast was also noted. Bilateral breast ultrasounds were recommended. Bilateral breast ultrasounds were performed on 01-05-2024. The ultrasounds revealed in the left breast a 7 mm cyst no finding in the right breast. Considered BI-RADS 3 and a right breast mammogram was recommended in 6 months. The patient underwent a right breast diagnostic mammogram and right breast ultrasound on 08-02-2024. In the right breast mammogram a 1.1 cm central outer asymmetric density was identified which was felt to be minimally larger. Nothing was seen to correspond to this on the ultrasound. Therefore it was recommended that the patient undergo a right breast stereotactic core biopsy. The mammogram has been personally reviewed and discussed with Dr. Reza. She does not feel anything of concern in either breast. She has never had any surgery or biopsies in either breast. She is not complaining of any nipple discharge or skin changes. She has not had any recent trauma or infection in the breast. Caffeine: 2 cups coffee/day nicotine: none chocolate: several times a week BCP: in her 20's two years hormones: none Family History: none for cancer Hormonal History; menarche: 11 M1, breast fed: yes, age at first : 33 menopause: still having periods, regular Surgical HIstory: 2 C-sections Medical History: sometimes low iron Social History: nicotine: none alcohol: used to drink 2 drinks night for 5 m=nights a week but decreased several months ago to none drugs: none Review of Systems - Constitutional Denies fever, Denies weight loss - EENT Eyes: denies blurred vision Ears: right: tinnitus Ears, nose, mouth and throat: Denies dysphagia - Breasts bilateral: as per HPI - Cardiovascular Denies chest pain, Denies shortness of breath - Respiratory Denies cough, Denies 7 - Gastrointestinal Reports as per HPI - Genitourinary Genitourinary Comment(s): UTI is on antibiotics at this time Menstruation: Reports as per HPI, Reports period normal - Musculoskeletal Reports as per HPI - Integumentary Denies rash, Denies unusual bruising - Neurological Denies headaches, Denies syncope - Psychiatric Reports as per HPI - Endocrine Reports weight change - Hematologic/Lymphatic Denies easy bleeding, Denies easy bruising - Allergic/Immunologic Reports as per HPI Past Medical History Past Medical History: No Reported History Additional Past Medical History / Comment(s): . 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 History of Any Multi-Drug Resistant Organisms: None Reported Past Surgical History: Section Additional Past Surgical History / Comment(s): section 2. Past Anesthesia/Blood Transfusion Reactions: No Reported Reaction Past Psychological History: Anxiety Additional Psychological History / Comment(s): No meds Smoking Status: Never smoker Past Alcohol Use History: Occasional Additional Past Alcohol Use History / Comment(s): alcohol 2 weekly Past Drug Use History: None Reported - Past Family History Son(s) Family Medical History: Diabetes Mellitus Additional Family Medical History / Comment(s): Suspected type 1 diabetes. Paternal gramdmaother Family Medical History: CVA/TIA Medications and Allergies Home Medications Medication Instructions Recorded Confirmed Type Cholecalciferol [Vitamin D3 (25 1 cap PO HS 03/24/20 09/05/24 History Mcg = 1000 Iu)] L.acidoph,Paracasei, B.lactis 1 each PO HS 03/24/20 09/05/24 History [Probiotic] Multivitamin [Multivitamins Adult 1 each PO 03/24/20 09/05/24 History Gummies] Ubidecarenone [Co Q-10] 100 mg PO 03/24/20 09/05/24 History Iron 18 mg PO DAILY 12/12/23 09/05/24 History nitrofurantoin macrocrystaL 100 mg PO DAILY 09/05/24 09/05/24 History [Macrodantin] Allergies Allergy/AdvReac Type Severity Reaction Status Date / Time No Known Allergies Allergy Verified 09/05/24 07:29 Surgical - Exam Vital Signs Temp Pulse Resp BP 97.9 F 101 H 16 130/77 09/05/24 07:31 09/05/24 07:31 09/05/24 07:31 09/05/24 07:31 - General moderate distress - Eyes normal ocular movement - Neck trachea midline - Respiratory normal respiratory effort, clear to auscultation - Cardiovascular Rhythm: regular Heart Sounds: normal: S1, S2 - Abdomen Abdomen: soft, non tender, no guarding, no rigid, no rebound - Integumentary normal tugor - Neurologic no disoriented, no combative - Musculoskeletal normal gait - Psychiatric oriented to time, oriented to person, oriented to place, speech is normal, memory intact Breast Exam: BRA: 36C Inspection: Bilateral grade 2/3 ptosis Palpation: Right breast: Multi positional exam fibrocystic changes, no dominant masses or nodules of concern Right axilla: No adenopathy of concern Left breast: Multi positional exam fibrocystic changes no dominant masses or nodules of concern Left axilla: No adenopathy of concern Results Mammogram personally reviewed and discussed with Dr. Reza from radiology, density right breast persistent in the upper outer quadrant/central posterior breast for which stereotactic core biopsy has been recommended, ultrasound does not show any lesion of concern at that site No lesions of concern were identified in the left breast which would warrant biopsy at this time Assessment and Plan Assessment: Impression: Density right breast recommended for stereotactic core biopsy Plan: Right breast stereotactic core biopsy Risk and benefits of the procedure discussed with the patient. Risk include but are not limited to bleeding, infection, reaction to the anesthetic. Additionally if an adequate tissue was to be obtained then further tissue acquisition may be necessary. The patient understands and wishes to proceed. CC: Dr. Kevin Loredo
--- NOTE | 2024-09-05 08:55 | P.PCN ---
Date of Procedure: 09/05/24 Preoperative Diagnosis: Density of concern right breast Postoperative Diagnosis: Same Procedure(s) Performed: Right breast stereotactic core biopsy Anesthesia: local Surgeon: Emerita Kenney Pathology: other (Right breast tissue) Condition: stable Disposition: same day Indications for Procedure: Radiographic abnormality/density right breast not seen on ultrasound Operative Findings: Breast tissue Description of Procedure: The patient is a 49-year-old female who on a routine screening mammogram was noted to have an area of concern in the right breast. Repeat mammogram revealed that this may have increased in size and it was recommended that a stereotactic core biopsy be performed. This was after an ultrasound had been done which did not show any lesions of concern. The patient was examined and nothing of concern was palpated in her examination. The patient was informed of the risk and benefits of the procedure and she wished to proceed. The patient was brought to the stereotactic core biopsy room. She was positioned in the upright chair. A CC from above approach was utilized. A weatherization administrator film was obtained. This was in the right breast. The lesion of concern was identified. The lesion was targeted. The breast was prepped using chlorhexidine. 22 cc of 1% lidocaine were used to anesthetize the area of concern. A 9 gauge vacuum-assisted core rotating biopsy needle was driven to the correct coordinates. A prefire film was obtained and the needle was noted to be in the correct location. The needle was fired. A post fire film was obtained and the needle was noted to be in the correct location. 12 core biopsy specimens were obtained. The patient began to feel woozy towards the termination of the procedure. A secure alok Top-Hat clip was placed. A postprocedure radiograph will be obtained to assure that the clip is in the correct location. The patient tolerated the procedure in stable condition. The specimen is sent to pathology. The patient will follow-up with Dr. Salgado in 1 week. CC: Dr. Loredo, Dr. Brown
[2024-09-05 09:11] VITALS: BP 111/71; PULSE 79; TEMP 98.1
== END ==
LOC: RADMAMWWP 07:14
PROVIDERS: ATTEND Surgery
DX: N60.31 Fibrosclerosis of right breast (principal); R92.30 Dense breasts, unspecified; R92.8 Other abnormal and inconclusive findings on diagnostic imaging of breast
CPT/HCPCS: 88305; 19081; A4648; J2003

== ENCOUNTER → 2024-09-05 | Outpatient (CLI) | payer BC | LOC: WWCWWP 07:13 | PROVIDERS: ATTEND Surgery | DX: Z53.9 Procedure and treatment not carried out, unspecified reason (principal) ==

== ENCOUNTER 2024-09-09 08:47 | Emergency (ER) | payer BC ==
--- NOTE | 2024-09-09 09:10 | ED ---
Back Pain HPI - General Stated Complaint: Back Pain Time Seen by Provider: 09/09/24 09:09 Source: patient, RN notes reviewed Mode of arrival: ambulatory Limitations: no limitations - History of Present Illness Initial Comments: 49-year-old female presenting to the ER for evaluation of left flank pain. She states this been ongoing for the past 3 to 4 days. Patient does report for the past couple of months she has been having random abdominal pain. Sometimes on the right side sometimes in the middle. She states she has changed her diet and started taking probiotics which has helped with diarrhea. She denies any nausea, vomiting, hematuria, dysuria, urinary frequency or fevers. No history of ulcerative colitis or Crohn's disease. Patient states she had an abdominal u ltrasound completed which showed gallstones but no acute process. Patient also reports she had a thyroid ultrasound completed and states it was "swollen". Patient reports an unintentional 12 pound weight loss over the past 5 to 6 weeks along with chills. Patient is concerned of her thyroid as she has not had her TSH drawn and is having difficulties following up with PCP. She denies any chest pain, palpitations, shortness of breath or other complaints. Patient does states she is currently being treated for UTI on Macrobid. - Related Data Home Medications Medication Instructions Recorded Confirmed Cholecalciferol [Vitamin D3 (25 1 cap PO HS 03/24/20 09/05/24 Mcg = 1000 Iu)] L.acidoph,Paracasei, B.lactis 1 each PO HS 03/24/20 09/05/24 [Probiotic] Multivitamin [Multivitamins Adult 1 each PO HS 03/24/20 09/05/24 Gummies] Ubidecarenone [Co Q-10] 100 mg PO HS 03/24/20 09/05/24 Iron 18 mg PO DAILY 12/12/23 09/05/24 nitrofurantoin macrocrystaL 100 mg PO DAILY 09/05/24 09/05/24 [Macrodantin] Allergies Allergy/AdvReac Type Severity Reaction Status Date / Time No Known Allergies Allergy Verified 09/09/24 09:21 Review of Systems ROS Statement: Those systems with pertinent positive or pertinent negative responses have been documented in the HPI. ROS Other: All systems not noted in ROS Statement are negative. Past Medical History Past Medical History: No Reported History Additional Past Medical History / Comment(s): . 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 History of Any Multi-Drug Resistant Organisms: None Reported Past Surgical History: Section Additional Past Surgical History / Comment(s): section 2. Past Anesthesia/Blood Transfusion Reactions: No Reported Reaction Past Psychological History: Anxiety Additional Psychological History / Comment(s): No meds Smoking Status: Never smoker Past Alcohol Use History: Occasional Additional Past Alcohol Use History / Comment(s): alcohol 2 weekly Past Drug Use History: None Reported - Past Family History Son(s) Family Medical History: Diabetes Mellitus Additional Family Medical History / Comment(s): Suspected type 1 diabetes. Paternal gramdmaother Family Medical History: CVA/TIA General Exam - General Exam Comments Initial Comments: Visual Physical Exam Vital signs reviewed General: Well-appearing, nontoxic, no acute distress. Head: Normocephalic, atraumatic Eyes: PERRLA, EOMI ENT: Airway patent Chest: Nonlabored breathing Skin: No visual rash, normal skin tone Neuro: Alert and oriented 3 Musculoskeletal: No gross abnormalities General appearance: alert, in no apparent distress Respiratory exam: Present: normal lung sounds bilaterally. Absent: respiratory distress, wheezes, rales, rhonchi, stridor Cardiovascular Exam: Present: regular rate, normal rhythm, normal heart sounds. Absent: systolic murmur, diastolic murmur, rubs, gallop, clicks GI/Abdominal exam: Present: soft, normal bowel sounds. Absent: distended, tenderness, guarding, rebound, rigid Neurological exam: Present: alert, oriented X3, CN II-XII intact Skin exam: Present: warm, dry, intact, normal color. Absent: rash Course Vital Signs 09/09/24 09/09/24 09:17 12:07 Temperature 98.0 F Pulse Rate 85 94 Respiratory 22 18 Rate Blood Pressure 138/87 132/83 O2 Sat by Pulse 99 98 Oximetry Medical Decision Making - Medical Decision Making I performed the quick note portion of this chart. Electronically signed by Calista Lara PA-C Was pt. sent in by a medical professional or institution ([facility], [facility], urgent care, hospital, or long-term...) When possible be specific @ -[No] Did you speak to anyone other than the patient for history (EMS, parent, family, police, friend...)? What history was obtained from this source @ -[No] Did you review nursing and triage notes (agree or disagree)? Why? @ -[I reviewed and agree with nursing and triage notes] Were old charts reviewed (outside hosp., previous admission, EMS record, old EKG, old radiological studies, urgent care reports/EKG's, long-term records)? Report findings @ -[No old charts were reviewed] Differential Diagnosis (chest pain, altered mental status, abdominal pain women, abdominal pain men, vaginal bleeding, weakness, fever, dyspnea, syncope, headache, dizziness, GI bleed, back pain, seizure, CVA, palpatations, mental health, musculoskeletal)? @ -Differential Abdominal Pain Women:Appendicitis, Cholecystitis, diverticulosis, ischemic bowel, pancreatitis, hepatitis, UTI, gastroenteritis, AAA, incarcerated hernia, bowel obstruction, constipation, inflammatory bowel, hepatitis, peptic ulcer disease, splenic infarction, perforated viscus, vulvitis, ovarian torsion, PID, kidney stone, placenta abruption, this is not meant to be an all-inclusive list EKG interpreted by me (3pts min.). @ -[As above] X-rays interpreted by me (1pt min.). @ -[None done] CT interpreted by me (1pt min.). @ -[None done] U/S interpreted by me (1pt. min.). @ -[None done] What testing was considered but not performed or refused? (CT, X-rays, U/S, labs)? Why? @ -[None] What meds were considered but not given or refused? Why? @ -[None] Did you discuss the management of the patient with other professionals (aubrie salas i.e. , PA, [facility], lab, RT, psych nurse, social insurance analyst, inside contractor sales, teacher, annual giving officer, skilled nursing case manager)? Give summary @ -[No] Was smoking cessation discussed for >3mins.? @ -[No] Was critical care preformed (if so, how long)? @ -[No] Were there social determinants of health that impacted care today? How? (Homelessness, low income, unemployed, alcoholism, drug addiction, transportation, low edu. Level, literacy, decrease access to med. care, residential, rehab)? @ -[No] Was there de-escalation of care discussed even if they declined (Discuss DNR or withdrawal of care, Hospice)? DNR status @ -[No] What co-morbidities impacted this encounter? (DM, HTN, Smoking, COPD, CAD, Cancer, CVA, ARF, Chemo, Hep., AIDS, mental health diagnosis, sleep apnea, morbid obesity)? @ -[None] Was patient admitted / discharged? Hospital course, mention meds given and route, prescriptions, significant lab abnormalities, going to OR and other pertinent info. @ -[hospital course] Undiagnosed new problem with uncertain prognosis? @ -[No] Drug Therapy requiring intensive monitoring for toxicity (Heparin, Nitro, Insulin, Cardizem)? @ -[No] Were any procedures done? @ -[No] Diagnosis/symptom? @ -[default] Acute, or Chronic, or Acute on Chronic? @ -[default] Uncomplicated (without systemic symptoms) or Complicated (systemic symptoms)? @ -[default] Side effects of treatment? @ -[No] Exacerbation, Progression, or Severe Exacerbation? @ -[No] Poses a threat to life or bodily function? How? (Chest pain, USA, OR, pneumonia, PE, COPD, DKA, ARF, appy, cholecystitis, CVA, Diverticulitis, Homicidal, Suicidal, threat to staff... and all critical care pts) @ -[No] - Lab Data Result diagrams: 09/09/24 11:27 09/09/24 11:27 Lab Results 09/09/24 09/09/24 09/09/24 Range/Units 09:30 11:27 11:27 WBC 8.7 (3.8-10.6) k/uL RBC 4.71 (3.80-5.40) m/uL Hgb 13.3 (11.4-16.0) gm/dL Hct 40.6 (34.0-46.0) % MCV 86.2 (80.0-100.0) fL MCH 28.3 (25.0-35.0) pg MCHC 32.9 (31.0-37.0) g/dL RDW 12.6 (11.5-15.5) % Plt Count 263 (150-450) k/uL MPV 8.5 Neutrophils % 76 % Lymphocytes % 16 % Monocytes % 5 % Eosinophils % 1 % Basophils % 1 % Neutrophils # 6.6 (1.3-7.7) k/uL Lymphocytes # 1.4 (1.0-4.8) k/uL Monocytes # 0.4 (0-1.0) k/uL Eosinophils # 0.1 (0-0.7) k/uL Basophils # 0.1 (0-0.2) k/uL Sodium 141 (137-145) mmol/L Potassium 4.6 (3.5-5.1) mmol/L Chloride 102 (98-107) mmol/L Carbon Dioxide 27 (22-30) mmol/L Anion Gap 12 mmol/L BUN 9 (7-17) mg/dL Creatinine 0.75 (0.52-1.04) mg/dL Est GFR (CKD-EPI)AfAm >90 (>60 ml/min/1.73 sqM) Est GFR (CKD-EPI)NonAf >90 (>60 ml/min/1.73 sqM) Glucose 111 H (74-99) mg/dL Plasma Lactic Acid Gunner (0.7-2.0) mmol/L Calcium 10.2 (8.4-10.2) mg/dL Total Bilirubin 0.4 (0.2-1.3) mg/dL AST 18 (14-36) U/L ALT 15 (4-34) U/L Alkaline Phosphatase 67 (38-126) U/L Total Protein 8.4 H (6.3-8.2) g/dL Albumin 5.1 H (3.5-5.0) g/dL TSH (0.465-4.680) mIU/L Urine Color Colorless Urine Appearance Clear (Clear) Urine pH 6.5 (5.0-8.0) Ur Specific Waldron 1.006 (1.001-1.035) Urine Protein Negative (Negative) Urine Glucose (UA) Negative (Negative) Urine Ketones Negative (Negative) Urine Blood Negative (Negative) Urine Nitrite Negative (Negative) Urine Bilirubin Negative (Negative) Urine Urobilinogen <2.0 (<2.0) mg/dL Ur Leukocyte Esterase Negative (Negative) 09/09/24 09/09/24 Range/Units 11:27 11:27 WBC (3.8-10.6) k/uL RBC (3.80-5.40) m/uL Hgb (11.4-16.0) gm/dL Hct (34.0-46.0) % MCV (80.0-100.0) fL MCH (25.0-35.0) pg MCHC (31.0-37.0) g/dL RDW (11.5-15.5) % Plt Count (150-450) k/uL MPV Neutrophils % % Lymphocytes % % Monocytes % % Eosinophils % % Basophils % % Neutrophils # (1.3-7.7) k/uL Lymphocytes # (1.0-4.8) k/uL Monocytes # (0-1.0) k/uL Eosinophils # (0-0.7) k/uL Basophils # (0-0.2) k/uL Sodium (137-145) mmol/L Potassium (3.5-5.1) mmol/L Chloride (98-107) mmol/L Carbon Dioxide (22-30) mmol/L Anion Gap mmol/L BUN (7-17) mg/dL Creatinine (0.52-1.04) mg/dL Est GFR (CKD-EPI)AfAm (>60 ml/min/1.73 sqM) Est GFR (CKD-EPI)NonAf (>60 ml/min/1.73 sqM) Glucose (74-99) mg/dL Plasma Lactic Acid Gunner 0.9 (0.7-2.0) mmol/L Calcium (8.4-10.2) mg/dL Total Bilirubin (0.2-1.3) mg/dL AST (14-36) U/L ALT (4-34) U/L Alkaline Phosphatase (38-126) U/L Total Protein (6.3-8.2) g/dL Albumin (3.5-5.0) g/dL TSH 3.660 (0.465-4.680) mIU/L Urine Color Urine Appearance (Clear) Urine pH (5.0-8.0) Ur Specific Waldron (1.001-1.035) Urine Protein (Negative) Urine Glucose (UA) (Negative) Urine Ketones (Negative) Urine Blood (Negative) Urine Nitrite (Negative) Urine Bilirubin (Negative) Urine Urobilinogen (<2.0) mg/dL Ur Leukocyte Esterase (Negative) Disposition Clinical Impression: Abdominal pain Disposition: HOME SELF-CARE Condition: Stable Instructions (If sedation given, give patient instructions): Abdominal Pain ( ED) Additional Instructions: Follow-up with PCP. Return to the ER for any new or worsening concerns. Is patient prescribed a controlled substance at d/c from ED?: No Referrals: Rei Loredo DO [Primary Care Provider] - 1-2 days Time of Disposition: 13:49
[2024-09-09 10:27] LABS: Appearance,Urine Clear (Clear); Bilirubin,Urine Negative (Negative); Blood,Urine Negative (Negative); Color,Urine Colorless; Glucose,Urine (UA) Negative (Negative); Ketones,Urine Negative (Negative); Leukocyte Esterase,Urine Negative (Negative); Nitrite,Urine Negative (Negative); PH, Urine 6.5 (5.0-8.0); Protein,Urine Negative (Negative); Specific Gravity,Urine 1.006 (1.001-1.035); Urobilinogen,Urine <2.0 mg/dL (<2.0)
[2024-09-09 11:41] LABS: Basophils # (A) 0.1 k/uL (0-0.2); Basophils % (A) 1 %; Eosinophils # (A) 0.1 k/uL (0-0.7); Eosinophils % (A) 1 %; HCT 40.6 % (34.0-46.0); HGB 13.3 gm/dL (11.4-16.0); Lymphocytes # (A) 1.4 k/uL (1.0-4.8); Lymphocytes % (A) 16 %; MCH 28.3 pg (25.0-35.0); MCHC 32.9 g/dL (31.0-37.0); MCV 86.2 fL (80.0-100.0); Mean Platelet Volume 8.5; Monocytes # (A) 0.4 k/uL (0-1.0); Monocytes % (A) 5 %; Neutrophils # (A) 6.6 k/uL (1.3-7.7); Neutrophils % (A) 76 %; Platelet Count 263 k/uL (150-450); RBC 4.71 m/uL (3.80-5.40); RDW 12.6 % (11.5-15.5); WBC 8.7 k/uL (3.8-10.6)
[2024-09-09 11:50] LABS: ALT 15 U/L (4-34); AST 18 U/L (14-36); African American GFR (CKD) >90 (>60 ml/min/1.73 sqM); Albumin 5.1 g/dL (3.5-5.0); Alkaline Phosphatase 67 U/L (38-126); Anion Gap 12 mmol/L; Blood Urea Nitrogen 9 mg/dL (7-17); Calcium 10.2 mg/dL (8.4-10.2); Carbon Dioxide 27 mmol/L (22-30); Chloride 102 mmol/L (98-107); Glucose 111 mg/dL (74-99); Non-African American GFR(CKD) >90 (>60 ml/min/1.73 sqM); Potassium 4.6 mmol/L (3.5-5.1); Sodium 141 mmol/L (137-145); Total Bilirubin 0.4 mg/dL (0.2-1.3); Total Protein 8.4 g/dL (6.3-8.2)
[2024-09-09 12:15] VITALS: RESP 18
--- NOTE | 2024-09-09 12:15 | CT ---
EXAMINATION TYPE: CT abdomen pelvis w con DATE OF EXAM: 09/09/2024 HISTORY: upper abd pain for [address] DLP: 1067.5mGycm Automated Exposure Control for Dose Reduction was Utilized. CONTRAST: CT scan of the abdomen and pelvis is performed with IV Contrast, patient injected with 100ml mL of Is ovue 300. COMPARISON: Prior CT August 04, 2024 FINDINGS: LUNG BASES: No significant abnormality is appreciated. LIVER/GB: No significant abnormality is appreciated. PANCREAS: No significant abnormality is seen. SPLEEN: No significant abnormality is seen. ADRENALS: No significant abnormality is seen. KIDNEYS: Stable 1.1 cm fat density lesion or benign angiomyolipoma left kidney coronal image 47. BOWEL: No significant abnormality is seen. UTERUS/ADNEXA: Anteverted uterus. Persistent 3.4 cm thin-walled cyst or cystic lesion in the left pel vis/ovary axial image 78. This can be better evaluated and characterized with pelvic ultrasound if de sired LYMPH NODES: Persistent noxx-sh-wecrsmez fat stranding throughout the left-sided mesentery with promi nent but subcentimeter lymph nodes similar to prior. OSSEOUS STRUCTURES: No significant abnormality is seen. OTHER: Stable tiny fat-containing umbilical hernia sagittal image 83. IMPRESSION: Yeni mesentery appearance redemonstrated. 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 Other etiolo gies are not excluded. Clinical correlation advised. No suspicious new findings present. [facility] Srinivasan, , 09/09/2024 12:12 PM
[2024-09-09 14:07] VITALS: BP 124/81; PULSE 82; TEMP 98.5
== END 2024-09-09 14:06 | disposition home or self-care (01) ==
LOC: EC 08:47
DX: R10.9 Unspecified abdominal pain (principal)
CPT/HCPCS: 36415; 80053; 84443; 83605; 85025; 81003; 74177; 99284; Q9967

== ENCOUNTER → 2024-09-12 | Outpatient (CLI) | payer BC ==
[2024-09-12 11:42] VITALS: BP 137/81; PULSE 89; RESP 16; TEMP 97.9
--- NOTE | 2024-09-12 12:14 | P.PN ---
Subjective Progress Note Date: 09/12/24 Principal diagnosis: fibrocystic breast changes abnormal right breast mammogram/ stero biopsy 09 05 24 benign concordant Requesting physician: Mark Brown History of present illness: Daniela is a 49-year-old female who underwent a bilateral screening mammogram on 01-01-24. Diagnostic mammogram of both breast was recommended. This was performed on 01-05-2024. A persistent right upper outer quadrant focal asymmetry 9.3 cm from the nipple was identified. A persistent 7 mm lesion in the left breast was also noted. Bilateral breast ultrasounds were recommended. Bilateral breast ultrasounds were performed on 01-05-2024. The ultrasounds revealed in the left breast a 7 mm cyst no finding in the right breast. Considered BI-RADS 3 and a right breast mammogram was recommended in 6 months. The patient underwent a right breast diagnostic mammogram and right breast ultrasound on 08-02-2024. In the right breast mammogram a 1.1 cm central outer asymmetric density was identified which was felt to be minimally larger. Nothing was seen to correspond to this on the ultrasound. Therefore it was recommended that the patient undergo a right breast stereotactic core biopsy. The mammogram has been personally reviewed and discussed with Dr. Reza. She does not feel anything of concern in either breast. She has never had any surgery or biopsies in either breast. She is not complaining of any nipple discharge or skin changes. She has not had any recent trauma or infection in the breast. Core biopsy of the lesion of concern in the right breast on 09 05 24. The pathology revealed benign breast with fibrocystic changes including stromal fibrosis. It was felt that the area of concern had been adequately sampled. She tolerated the procedure without difficulty. Caffeine: 2 cups coffee/day nicotine: none chocolate: several times a week BCP: in her 20's two years hormones: none Family History: none for cancer Hormonal History; menarche: 11 M1, breast fed: yes, age at first : 33 menopause: still having periods, regular Surgical HIstory: 2 C-sections Medical History: sometimes low iron Social History: nicotine: none alcohol: used to drink 2 drinks night for 5 nights a week but decreased several months ago to none drugs: none Review of Systems - Constitutional Denies fever, Denies weight loss - EENT Eyes: denies blurred vision Ears: right: tinnitus Ears, nose, mouth and throat: Denies dysphagia - Breasts bilateral: as per HPI - Cardiovascular Denies chest pain, Denies shortness of breath - Respiratory Denies cough - Gastrointestinal Reports as per HPI - Genitourinary Genitourinary Comment(s): UTI is on antibiotics at this time Menstruation: Reports as per HPI, Reports period normal - Musculoskeletal Reports as per HPI - Integumentary Denies rash, Denies unusual bruising - Neurological Denies headaches, Denies syncope - Psychiatric Reports as per HPI - Endocrine Reports weight change - Hematologic/Lymphatic Denies easy bleeding, Denies easy bruising - Allergic/Immunologic Reports as per HPI Past Medical History Past Medical History: No Reported History Additional Past Medical History / Comment(s): . 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 History of Any Multi-Drug Resistant Organisms: None Reported Past Surgical History: Section Additional Past Surgical History / Comment(s): section 2. Past Anesthesia/Blood Transfusion Reactions: No Reported Reaction Past Psychological History: Anxiety Additional Psychological History / Comment(s): No meds Smoking Status: Never smoker Past Alcohol Use History: Occasional Additional Past Alcohol Use History / Comment(s): alcohol 2 weekly Past Drug Use History: None Reported - Past Family History Son(s) Family Medical History: Diabetes Mellitus Additional Family Medical History / Comment(s): Suspected type 1 diabetes. Paternal gramdmaother Family Medical History: CVA/TIA Medications and Allergies Home Medications Medication Instructions Recorded Confirmed Type Cholecalciferol [Vitamin D3 (25 1 cap PO HS 03/24/20 09/05/24 History Mcg = 1000 Iu)] L.acidoph,Paracasei, B.lactis 1 each PO 03/24/20 09/05/24 History [Probiotic] Multivitamin [Multivitamins Adult 1 each PO 03/24/20 09/05/24 History Gummies] Ubidecarenone [Co Q-10] 100 mg PO 03/24/20 09/05/24 History Iron 18 mg PO DAILY 12/12/23 09/05/24 History nitrofurantoin macrocrystaL 100 mg PO DAILY 09/05/24 09/05/24 History [Macrodantin] Allergies Allergy/AdvReac Type Severity Reaction Status Date / Time No Known Allergies Allergy Verified 09/05/24 07:29 Objective - Vital Signs Vital signs: Vital Signs Temp 97.9 F 09/12/24 11:40 Pulse 89 09/12/24 11:40 Resp 16 09/12/24 11:40 BP 137/81 09/12/24 11:40 Pulse Ox 97 09/12/24 11:40 FiO2 Intake & Output 09/11/24 09/12/24 09/12/24 18:59 06:59 18:59 Weight 88.451 kg - Constitutional General appearance: Present: cooperative - EENT Eyes: Present: EOMI ENT: Present: hearing grossly normal - Neck Neck: Present: normal ROM - Respiratory Respiratory: bilateral: CTA - Cardiovascular Heart sounds: normal: S1, S2 - Integumentary Integumentary: Present: normal turgor - Musculoskeletal Musculoskeletal: Present: gait normal - Psychiatric Psychiatric: Present: A&O x's 3 - Additional findings Additional findings: Breast Exam from 09-05-24 BRA: 36C Inspection: Bilateral grade 2/3 ptosis Palpation: Right breast: Multi positional exam fibrocystic changes, no dominant masses or nodules of concern Right axilla: No adenopathy of concern Left breast: Multi positional exam fibrocystic changes no dominant masses or nodules of concern Left axilla: No adenopathy of concern 09-12-24 biopsy site right breast clean and dry no evidence of infection Assessment and Plan Assessment: Impression: Patient status post right breast stereotactic core biopsy/benign concordant Plan: Repeat right breast mammogram in 6 months with examination at that time
== END ==
LOC: WWCWWP 11:03
PROVIDERS: ATTEND Surgery
DX: Z90.11 Acquired absence of right breast and nipple (principal)